=== PATIENT | male | born 1950 | race Caucasian/White ===

== ENCOUNTER 2018-04-30 05:20 | Observation (INO) ==
--- NOTE | 2018-04-30 05:39 | Emergency Department Note ---
Disposition Clinical Impression: Chest pain Disposition: Admitted As Inpatient Condition: Good Time of Disposition: 06:23 Chest Pain HPI - General Stated Complaint: chest pain Time Seen by Provider: 04/30/18 05:26 Source: patient, EMS Mode of arrival: EMS Limitations: no limitations Vital Signs Reviewed: Yes Nursing Notes Reviewed: Yes - History of Present Illness HPI Narrative: 67-year-old male history of hypertension, hyperlipidemia, coronary arterial disease with 6 stents presents emergency department with chest pain. He reports 4 hours prior to arrival experiencing a sharp pain in the midsternum. Denies any diaphoresis, shortness of breath, nausea or vomiting. This occurred while at rest as he was getting ready for bed. Does report a history of insomnia for the past several years. He reports only taken aspirin at home. He took a total of 324 mg aspirin prior to arrival. His pain currently is a 4 out of 10. Last time he had similar symptoms was prior stents. He denies any leg swelling or history of blood clots. Pt complaint: chest pain Severity scale (1-10): 4 - Related Data Home Medications Medication Instructions Recorded Confirmed Cholecalciferol (Vitamin D3) 800 unit PO QAM 03/24/15 03/24/15 [Vitamin D] ClonazePAM [Klonopin] 1 mg PO HS PRN 03/24/15 03/24/15 Divalproex (24 HR) [Depakote ER 500 mg PO HS 03/24/15 03/24/15 (24 HR)] Duloxetine [Cymbalta] 90 mg PO DAILY 03/24/15 03/24/15 Gabapentin [Neurontin] 800 mg PO TID 03/24/15 03/24/15 Ginkgo Biloba [place] Extract [Ginkgo 120 mg PO QAM 03/24/15 03/24/15 Biloba] Isosorbide MONOnitrate (24 HR) 60 mg PO QAM 03/24/15 03/24/15 [Imdur] RX: HydrOXYzine Pamoate 25 mg PO QID PRN 03/24/15 03/24/15 RX: Loperamide [Imodium] 2 mg PO DAILY 03/24/15 03/24/15 RX: Omeprazole [PriLOSEC] 20 mg PO DAILY 03/24/15 03/24/15 Terbinafine HCl [Lamisil] 250 mg PO DAILY 03/24/15 03/24/15 Ubidecarenone [Coenzyme Q10] 200 mg PO QAM 03/24/15 03/24/15 Allergies Allergy/AdvReac Type Severity Reaction Status Date / Time codeine Allergy Swelling Verified 03/24/15 13:21 of Lip/Tongue/Throat acetaminophen [From Tylenol] AdvReac Gastrointestinal Verified 03/24/15 11:22 Upset testosterone AdvReac Fatigued Verified 03/24/15 11:22 All systems ED: reviewed and negative except as stated. Review of Systems: As Per HPI Constitutional: Denies: fever, chills ENT ED: Denies: congestion Cardiovascular: Reports: chest pain Respiratory: Denies: cough, dyspnea Gastrointestinal: Denies: abdominal pain, nausea, vomiting Genitourinary: Denies: dysuria Musculoskeletal: Denies: back pain, neck pain Neurological: Denies: headache Psychiatric: Denies: anxiety, depression Chest Pain PMH - Past Medical History Medical history: Reports: coronary artery disease, diabetes, GERD, hypertension, myocardial infarction, peripheral artery disease, other Surgical history: Reports: angioplasty/stent Psychiatric history: Reports: anxiety, depression, PTSD, other - Social History Smoking Status: Never smoker Alcohol use: Reports: none Drug use: Reports: none, marijuana Physical Exam - General Limitations: no limitations General appearance: alert, in no apparent distress - Head Head exam: atraumatic, normocephalic, normal inspection - Eye Eye exam: Present: normal appearance, PERRL, EOMI - ENT ENT exam: normal exam, normal oropharynx, mucous membranes moist - Neck Neck exam: Present: normal inspection, full ROM, trachea midline - Chest Chest inspection: Present: normal inspection, symmetric chest wall rise. Absent: tenderness - Respiratory Respiratory exam: Present: normal lung sounds bilaterally. Absent: respiratory distress, wheezes - Cardiovascular Cardiovascular exam: Present: regular rate, normal rhythm, normal heart sounds - Expanded Cardiovascular Exam Peripheral pulses: 2+: radial (R), radial (L) - Abdominal Exam Abdominal exam: Present: soft, Non-Tender, scar (old midline, reports prior spleen repair). Absent: tenderness, distention, guarding, rebound, rigidity - Extremities Exam Extremities exam: Present: normal inspection, full ROM, normal capillary refill. Absent: tenderness, pedal edema, calf tenderness - Back Exam Back exam: Present: normal inspection, full ROM. Absent: tenderness - Neurological Exam Neurological exam: Present: alert, oriented X3 - Psychiatric Psychiatric exam: Present: normal affect, normal mood - Skin Skin exam: Present: warm, dry, intact, normal color. Absent: rash, cyanosis, diaphoresis Course Course Narrative: Patient presents with history of CAD status post stents presenting with chest pain. Symptom onset 4 hours prior to arrival. States it feels similar to his prior. No recent illnesses. Denies any other associated symptoms. He took his aspirin earlier today. Chest pain workup initiated. EKG did not reveal any ischemic findings consistent with STEMI - Reevaluation(s) Reevaluation #1: Troponin less than 0.03. His chest pain has improved. Patient HEART score is 4. Recommendation for inpatient hospitalization for further cardiac evaluation and management, patient will be admitted and is in agreement with this plan. Impression is chest pain. Time: 06:22 - Consultations Consultation #1: Spoke with on-call hospitalist shannen Graves to admit for chest pain r/o ACS. No further orders at this time. Repeat BP was 169/96. No antihypertensive administered here at this time. Time: 06:33 Vital Signs Temperature 98.4 F 04/30/18 05:22 Pulse Rate 72 04/30/18 05:22 Respiratory Rate 22 04/30/18 05:22 Blood Pressure 192/108 04/30/18 05:22 O2 Sat by Pulse Oximetry 99 04/30/18 05:22 Temperature 98.4 F 04/30/18 05:22 Pulse Rate 90 04/30/18 06:39 Respiratory Rate 22 04/30/18 05:22 Blood Pressure 163/95 04/30/18 06:39 O2 Sat by Pulse Oximetry 99 04/30/18 05:22 Oxygen Delivery Oxygen Delivery Room Air Chest Pain - MDM Narrative Medical decision making narrative: Patient was discussed with my attending physician who agrees with ED management and final disposition. They independently evaluated the patient. Please refer to their attestation to this encounter for additional information. This note was generated by [employer] voice recognition software and as a result grammatical or spelling errors may occur using this program. - Medical Records Medical records reviewed: Yes I reviewed the patient's medical records. - Lab Data Lab results reviewed: Yes I reviewed the patient's lab results. Result diagrams: 04/30/18 05:39 04/30/18 05:39 Lab Results 04/30/18 04/30/18 Range/Units 05:39 05:39 WBC 7.9 (4.3-11.1) K/mcL RBC 5.89 H (4.19-5.50) M/mcL Hgb 16.1 (12.9-16.9) g/dL Hct 47.4 (37.5-50.1) % MCV 80.5 L (83.0-100.0) fL MCH 27.3 L (28.0-33.3) pg MCHC 34.0 (31.6-35.5) g/dL RDW 13.9 (11.5-14.5) % Plt Count 225 (140-400) K/mcL MPV 9.7 (9.4-12.4) fL Immature Gran % 0.3 (0-4) % Seg Neutrophils % 56.6 % Lymphocytes % 31.6 % Monocytes % 9.4 % Eosinophils % 1.5 % Basophils % 0.6 % Neutrophils # 4.5 (1.6-8.9) K/mcL Lymphocytes # 2.5 (0.6-4.6) K/mcL Monocytes # 0.7 (0.0-1.3) K/mcL Eosinophils # 0.1 (0.0-0.6) K/mcL Basophils # 0.1 (0.0-0.2) K/mcL Sodium 137 (136-145) mEq/L Potassium 3.4 L (3.5-5.1) mEq/L Chloride 103 (98-107) mEq/L Carbon Dioxide 25 (23-29) mEq/L BUN 13 (8-23) mg/dL Creatinine 1.02 (0.70-1.30) mg/dL Est GFR ( Amer) > 60 (> 60) Est GFR (Non-Af Amer) > 60 (> 60) BUN/Creatinine Ratio 13 (6-26) Glucose 131 H (70-105) mg/dL Calculated Osmolality 286 (280-300) Calcium 9.7 (8.6-10.3) mg/dL Troponin I < 0.03 (< 0.04) ng/mL - Radiology Data Radiology results reviewed: Yes I reviewed the patient's radiology results. - EKG Data EKG attestation: Yes I reviewed and interpreted this EKG. EKG results narrative: EKG performed 531 normal sinus rhythm 68 beats per minute, normal axis, good R wave progression, no ST elevation or depression, intervals appear within normal limits. There to prior EKG performed 03/24/2015 shows similar consistent findings. No acute ischemic changes. Heart Score - Score History: Slightly Suspicious EKG: Normal Age: Greater than 65 Risk Factors: Equal/Greater than 3 risk factor or history of atherosclerotic disease Troponin: Less than normal limit HEART Score Total: 4 Attestation Statement - Attestation Attestation: I, Wade Morrow, examined this patient and my medical decision-making was reviewed with the REVIEW SPECIALIST/PA/Advanced Practice Nurse/Resident Physician. I agree with the documented findings, disposition and treatment plan as described except to the extent set forth below. 67-year-old male presents with concerns of chest pain. Patient states pain started 4 hours prior to arrival and have been intermittent throughout the night. Patient reports that this feels similar to his previous MA. Pain is described as a pressure in the center of his chest, he reported associated diaphoresis, nausea, palpitations. Patient has history of coronary artery disea se with 6 stents in his chest. He does not follow supervisor dyer. Initial troponin negative. EKG did not show evidence of STEMI. Chest x-ray did not show evidence of infiltrate or acute surgical pathology. Patient will be admitted to the hospitalist for further care and evaluation.
[2018-04-30 05:52] LABS: Basophils # 0.1 K/mcL (0.0-0.2); Basophils % 0.6 %; Eosinophils # 0.1 K/mcL (0.0-0.6); Eosinophils % 1.5 %; Hematocrit 47.4 % (37.5-50.1); Hemoglobin 16.1 g/dL (12.9-16.9); Immature Granulocytes % 0.3 % (0-4); Lymphocytes # 2.5 K/mcL (0.6-4.6); Lymphocytes % 31.6 %; Mean Corpuscular Hemoglobin 27.3 pg (28.0-33.3); Mean Corpuscular Volume 80.5 fL (83.0-100.0); Mean Platelet Volume 9.7 fL (9.4-12.4); Monocytes # 0.7 K/mcL (0.0-1.3); Monocytes % 9.4 %; Neutrophils # 4.5 K/mcL (1.6-8.9); Platelet Count 225 K/mcL (140-400); Red Blood Count 5.89 M/mcL (4.19-5.50); Red Cell Distribution Width 13.9 % (11.5-14.5); Segmented Neutrophils % 56.6 %
[2018-04-30 06:13] LABS: BUN/Creatinine Ratio 13 (6-26); Blood Urea Nitrogen 13 mg/dL (8-23); Calcium 9.7 mg/dL (8.6-10.3); Carbon Dioxide 25 mEq/L (23-29); Chloride 103 mEq/L (98-107); Glucose 131 mg/dL (70-105); Osmolality,Calculated 286 (280-300); Potassium 3.4 mEq/L (3.5-5.1); Sodium 137 mEq/L (136-145); Troponin I < 0.03 ng/mL (< 0.04); eGFR For Non-African Americans > 60 (> 60)
--- NOTE | 2018-04-30 07:48 | Internal Med History&Physical ---
Date of Encounter: 04/30/18 Time of Encounter: 07:46 Internal Medicine - H&P: HPI Chief complaint: chest pain Admitted From: Emergency Dept Plans for Post Hospital Care: Home History of present illness: Mr. Conti is a 67 year old male Patient with history of CAD said had C stents in the past, diabetes, hypertension, peripheral vascular disease, high cholesterol, GERD, anxiety and depression and PTSD patient presented emergency room with chest pain describes as sharp pain midsternal last about 4 hours present mostly at rest and emergency room EKG is unremarkable troponin is negative patient said his chest pain is now gone. Will be admitted for chest pain rule out protocol to try to get him in for nuclear stress test this morning. Past Med Surg Social Fam HX - Past Medical History Medical history: coronary artery disease, diabetes, GERD, hypertension, myocardial infarction, peripheral artery disease, other Additional medical history: States "no seizure Psychiatric history: anxiety, depression, PTSD, other - Past Surgical History Surgical History: angioplasty/stent - Social History Smoking Status: Never smoker Smokeless Tobacco Status: No Alcohol use: none Drug use: none, marijuana Internal Medicine - H&P: Meds Cholecalciferol (Vitamin D3) [Vitamin D] 800 unit PO QAM 03/24/15 [History] ClonazePAM [Klonopin] 1 mg PO HS PRN 03/24/15 [History] Divalproex (24 HR) [Depakote ER (24 HR)] 500 mg PO HS 03/24/15 [History] Duloxetine [Cymbalta] 90 mg PO DAILY 03/24/15 [History] Gabapentin [Neurontin] 800 mg PO TID 03/24/15 [History] Ginkgo Biloba [place] Extract [Ginkgo Biloba] 120 mg PO QAM 03/24/15 [History] HydrOXYzine Pamoate 25 mg PO QID PRN 03/24/15 [History] Isosorbide MONOnitrate (24 HR) [Imdur] 60 mg PO QAM 03/24/15 [History] Loperamide [Imodium] 2 mg PO DAILY 03/24/15 [History] Omeprazole [PriLOSEC] 20 mg PO DAILY 03/24/15 [History] Terbinafine HCl [Lamisil] 250 mg PO DAILY 03/24/15 [History] Ubidecarenone [Coenzyme Q10] 200 mg PO QAM 03/24/15 [History] Allergy/AdvReac Type Severity Reaction Status Date / Time codeine Allergy Swelling Verified 03/24/15 13:21 of Lip/Tongue/Throat acetaminophen [From Tylenol] AdvReac Gastrointestinal Verified 03/24/15 11:22 Upset testosterone AdvReac Fatigued Verified 03/24/15 11:22 All Systems PM: A 10-system review of systems was performed and is negative for pertinent findings except as documented above in the HPI. - Constitutional Vitals: Temp Pulse Resp BP Pulse Ox 98.4 F 62 14 170/93 96 04/30/18 05:22 04/30/18 07:42 04/30/18 07:42 04/30/18 07:42 04/30/18 07:42 Exam: done - Head Head exam: Present: atraumatic, normocephalic - Eye Eye exam: Present: PERRL, conjuntiva pink, sclera anicteric Pupils: Present: PERRL - Neck Neck exam general surgery: Present: supple, trachea midline. Absent: lymphadeno janell - Respiratory Respiratory exam: Present: CTAB. Absent: accessory muscle use, rales, rhonchi, wheezes - Cardiovascular Cardiovascular exam: Present: RRR, +S1, +S2. Absent: diastolic murmur, gallop, rubs, systolic murmur - GI/Abdominal GI/Abdominal exam: Present: normal bowel sounds, soft, no peritoneal signs. Absent: distended, tenderness - Extremities Exam Extremities exam: Present: warm, radial pulses palpable and symmetrical. Ab sent: calf tenderness, cyanotic, pedal edema - Neurological Exam Neurological exam: Present: CN II-XII intact, oriented X3, no focal deficits. Absent: pronater drift, facial droop, speech deficit - Skin Skin exam: Present: dry, intact Internal Med - H&P Results - Labs CBC & Chem 7: 04/30/18 05:39 04/30/18 05:39 Labs: Short CBC 04/30/18 Range/Units 05:39 WBC 7.9 (4.3-11.1) K/mcL Hgb 16.1 (12.9-16.9) g/dL Hct 47.4 (37.5-50.1) % Plt Count 225 (140-400) K/mcL Neutrophils # 4.5 (1.6-8.9) K/mcL BMP 04/30/18 05:39 Sodium 137 Potassium 3.4 L Chloride 103 Carbon Dioxide 25 BUN 13 Creatinine 1.02 Glucose 131 H Calcium 9.7 Cardiac Enzymes 04/30/18 Range/Units 05:39 Troponin I < 0.03 (< 0.04) ng/mL - Impressions ITS Impressions Chest X-Ray 04/30/18 05:36 IMPRESSION: No acute cardiopulmonary disease. D/ / 04/30/2018 07:35:50 Jones Gordon MD / bcarter Interpreting Provider: Jones Gordon MD - Assessment and plan (1) HTN (hypertension) Current Visit: Yes Status: Chronic Assessment and plan: uncontrol likely contribution to demand ischemia we will adjust home medication Qualifiers: Hypertension type: essential hypertension Qualified Code(s): I10 - Essential (primary) hypertension (2) Hyperlipidemia Current Visit: Yes Status: Chronic Assessment and plan: Resume home medication and check a lipid profile Qualifiers: Hyperlipidemia type: pure hypercholesterolemia Qualified Code(s): E78.00 - Pure hypercholesterolemia, unspecified; E78.0 - Pure hypercholesterolemia (3) Anxiety and depression Current Visit: Yes Status: Chronic Assessment and plan: Resume home medication (4) Post traumatic stress disorder (PTSD) Current Visit: Yes Status: Chronic Assessment and plan: Resume his home medication (5) Chest pain Current Visit: Yes Status: Acute Assessment and plan: Chest pain in a patient with prior sick stents multiple cardiac risk factors of obesity diabetes high cholesterol hypertension need further cardiac evaluation with stress test and 2-D echo Qualifiers: Chest pain type: precordial pain Qualified Code(s): R07.2 - Precordial pain (6) CAD (coronary artery disease), [place] coronary artery Current Visit: No Status: Chronic Assessment and plan: history of 6 stents Qualifiers: [place] vs. transplanted heart: [place] heart Associated angina: without angina Qualified Code(s): I25.10 - Atherosclerotic heart disease of [place] coronary artery without angina pectoris (7) Diabetes mellitus, type 2 Current Visit: No Status: Chronic Assessment and plan: Chronic with resume home medication and place on sliding scale Qualifiers: Diabetes mellitus chcf insulin use: unspecified chcf insulin use status Diabetes mellitus complication status: with circulatory complication Diabetes mellitus complication detail: with peripheral angiopathy without gangrene Qualified Code(s): E11.51 - Type 2 diabetes mellitus with diabetic peripheral angiopathy without gangrene - Time Spent With Patient Total time spent is greater than 50% in coordination of care (as documented) at patient's floor/unit and/or counseling patient:
[2018-04-30] MEDS ORDERED: Naloxone 0.4 MG/ML INJ IVP PRN (07:53)
[2018-04-30] MEDS ORDERED: traMADol 50 MG TABLET PO PRN (07:53)
[2018-04-30] MEDS ORDERED: Acetaminophen 325 MG TABLET PO PRN (07:53)
[2018-04-30] MEDS ORDERED: clonazePAM 1 MG TABLET PO PRN (07:57)
[2018-04-30] MEDS ORDERED: hydrOXYzine pamoate 25 MG CAPSULE PO PRN (07:57)
[2018-04-30] MEDS ORDERED: Regadenoson 0.4 MG/5 ML SYRINGE IVP ONE (08:08)
[2018-04-30 08:27] LABS: Chol/HDL Ratio 4.5 (0-4.9); Cholesterol 287 mg/dL (< 200); HDL Cholesterol 64 mg/dL (40-59); LDL Cholesterol,Calculated 196 mg/dL (0-99); Triglycerides 136 mg/dL (< 150)
[2018-04-30] MEDS: 0.9 % Sodium Chloride 1,000 ML IVC SCH ×2 (09:46→21:45)
[2018-04-30] MEDS: Isosorbide MONOnitrate (24 HR) 60 MG TAB.ER.24H PO SCH (11:59)
[2018-04-30] MEDS: Cholecalciferol (D-3) 1,000 UNIT TABLET PO SCH (11:59)
[2018-04-30] MEDS: amLODIPine 5 MG TABLET PO SCH (11:59)
[2018-04-30] MEDS: Gabapentin 400 MG CAPSULE PO SCH ×3 (11:59→21:45)
[2018-04-30] MEDS: GINKGO BILOBA LEAF EXTRACT 120 MG PO SCH (12:01)
[2018-04-30] MEDS: UBIDECARENONE 200 MG PO SCH (12:01)
--- NOTE | 2018-04-30 14:04 | Electrocardiograph Report ---
[address] [address] Test Date: 2018-04-30 Pat Name: Delfino Conti Department: [id number] Room: 3B41 Gender: M Instrument Assembler: : 1950 Requested By: Keaton Santo Order Number: [id number] Reading MD: Enma Mcgill Measurements Intervals [place] Rate: 68 P: 35 CA: 117 QRS: 1 QRSD: 87 T: 75 QT: 414 QTc: 441 Interpretive Statements Sinus rhythm Borderline short CA interval Electronically Signed On 04-30-2018 14:03:08 EST by Enma Mcgill
[2018-04-30] MEDS ORDERED: Divalproex (24 HR) 500 MG TABLET PO SCH (21:00)
[2018-05-01 05:37] LABS: Basophils % 0.7 %; Eosinophils # 0.2 K/mcL (0.0-0.6); Eosinophils % 2.9 %; Hematocrit 42.4 % (37.5-50.1); Immature Granulocytes % 0.2 % (0-4); Lymphocytes # 1.9 K/mcL (0.6-4.6); Mean Corpuscular HGB Conc 33.5 g/dL (31.6-35.5); Mean Corpuscular Hemoglobin 27.3 pg (28.0-33.3); Mean Corpuscular Volume 81.4 fL (83.0-100.0); Mean Platelet Volume 9.8 fL (9.4-12.4); Monocytes # 0.6 K/mcL (0.0-1.3); Monocytes % 9.7 %; Neutrophils # 3.3 K/mcL (1.6-8.9); Platelet Count 196 K/mcL (140-400); Red Blood Count 5.21 M/mcL (4.19-5.50); Segmented Neutrophils % 54.5 %
[2018-05-01 05:44] LABS: Hemoglobin 14.2 g/dL (12.9-16.9)
[2018-05-01] MEDS ORDERED: Regadenoson 0.4 MG/5 ML SYRINGE IVP ONE (05:44)
[2018-05-01 06:00] LABS: Alanine Aminotransferase 18 Units/L (7-52); Albumin 4.1 g/dL (3.5-5.7); Albumin/Globulin Ratio 2.1 (1.1-2.2); Alkaline Phosphatase 62 Units/L (34-104); Aspartate Amino Transferase 15 Units/L (13-39); BUN/Creatinine Ratio 15 (6-26); Bilirubin,Total 1.1 mg/dL (0.3-1.0); Blood Urea Nitrogen 14 mg/dL (8-23); Carbon Dioxide 25 mEq/L (23-29); Chloride 104 mEq/L (98-107); Glucose 95 mg/dL (70-105); Magnesium 1.7 mg/dL (1.6-2.6); Osmolality,Calculated 284 (280-300); Potassium 3.8 mEq/L (3.5-5.1); Sodium 137 mEq/L (136-145); Total Protein 6.1 g/dL (6.4-8.9); eGFR For Non-African Americans > 60 (> 60)
[2018-05-01] MEDS: UBIDECARENONE 200 MG PO SCH (08:51)
[2018-05-01] MEDS: amLODIPine 5 MG TABLET PO SCH (08:51)
[2018-05-01] MEDS: Cholecalciferol (D-3) 1,000 UNIT TABLET PO SCH (08:51)
[2018-05-01] MEDS: Gabapentin 400 MG CAPSULE PO SCH ×2 (08:51→15:53)
[2018-05-01] MEDS: Isosorbide MONOnitrate (24 HR) 60 MG TAB.ER.24H PO SCH (08:51)
[2018-05-01] MEDS: GINKGO BILOBA LEAF EXTRACT 120 MG PO SCH (08:51)
[2018-05-01 15:07] VITALS: BP 146/88
--- NOTE | 2018-05-01 16:50 | Discharge Summary ---
Orders not resulted at time of discharge: Pending orders 05/02/18 07:00 SP pharm nuclear stress Routine Date of Encounter: 05/01/18 Time of Encounter: 16:43 - Discharge Diagnosis (1) Chest pain Priority: Primary Status: Resolved Qualifiers: Chest pain type: precordial pain Qualified Code(s): R07.2 - Precordial pain (2) HTN (hypertension) Priority: Secondary Status: Chronic Qualifiers: Hypertension type: essential hypertension Qualified Code(s): I10 - Essential (primary) hypertension (3) Hyperlipidemia Priority: Secondary Status: Chronic Qualifiers: Hyperlipidemia type: pure hypercholesterolemia Qualified Code(s): E78.00 - Pure hypercholesterolemia, unspecified; E78.0 - Pure hypercholesterolemia (4) CAD (coronary artery disease), [place] coronary artery Priority: Secondary Status: Chronic Qualifiers: [place] vs. transplanted heart: [place] heart Associated angina: without angina Qualified Code(s): I25.10 - Atherosclerotic heart disease of [place] coronary artery without angina pectoris (5) Diabetes mellitus, type 2 Priority: Secondary Status: Chronic Qualifiers: Diabetes mellitus penitentiary insulin use: unspecified penitentiary insulin use status Diabetes mellitus complication status: with circulatory complication Diabetes mellitus complication detail: with peripheral angiopathy without gangrene Qualified Code(s): E11.51 - Type 2 diabetes mellitus with diabetic peripheral angiopathy without gangrene Hospital course: Mr. Conti is a 67 year old male with a PMH of CAD, with 6 stents in the past, DM, HTN, PVD, HLD, GERD, anxiety depression, PTSD. Presented for ACS rule out. EKG in the ED is without acute changes concerning for ischemia. Serial troponins negative. Chest pain resolved last time of arrival to the ED and has not returned since admission. He was kept overnight with the intention to perform a stress test. However, a stress test was not completed d/t tea ingestion after midnight. The patient was offered to stay overnight to receive a stress test in the morning however, he declined and wishes to discharge. He was instructed that he should have further evaluation of this chest pain due to his history and presentation however again he declined. The patient states that he will have an outpatient evaluation with cardiac stress at the [facility]. He has been Instructed to follow up with his cardiology team at the [facility] and have a stress test as an outpatient evaluation. The patient verbalizes understanding denies any further questions at this time. Furthermore, she will be noted that the patient also was found to have non-controlled hypertension. He is being sent home with a prescription for amlodipine in addition to his current anti-HTN regimen. Again, should be noted that he was strongly encouraged to stay for further monitoring however he wishes to pursue outpatient evaluation. Discharge discussed with: patient, nurse - Time Spent with Patient Total time spent providing and/or coordinating discharge services: Less than 30 minutes - Discharge Medications Prescriptions: amLODIPine [Norvasc] 10 mg PO DAILY 30 Days #60 tablet Atorvastatin [Lipitor] 40 mg PO HS 30 Days #30 tablet Divalproex (24 HR) [Depakote ER (24 HR)] 500 mg PO HS 30 Days #30 tab.er.24h DULoxetine [Cymbalta] 90 mg PO DAILY 30 Days #90 capsule.dr Home Medications: Cholecalciferol (Vitamin D3) [Vitamin D3] 400 unit PO QAM 03/24/15 [History] Gabapentin [Neurontin] 800 mg PO TID 03/24/15 [History] Ubidecarenone [Coenzyme Q10] 200 mg PO QAM 03/24/15 [History] Aspirin 325 mg PO DAILY 04/30/18 [History] Cyclobenzaprine [Flexeril] 10 mg PO BID PRN 04/30/18 [History] Ginkgo Biloba 60 mg PO DAILY 04/30/18 [History] Isosorbide MONOnitrate (24 HR) [Imdur] 60 mg PO DAILY 04/30/18 [History] Lidocaine [Aspercreme] 1 patch TP DAILY 04/30/18 [History] Loperamide [Imodium] 2 mg PO DAILY 04/30/18 [History] Loratadine [Allergy Relief] 10 mg PO DAILY 04/30/18 [History] Losartan Potassium 12.5 mg PO DAILY 04/30/18 [History] Meloxicam 15 mg PO DAILY PRN 04/30/18 [History] Metformin HCl [Glucophage] 500 mg PO BID 04/30/18 [History] Metoprolol Tartrate [Lopressor] 50 mg PO BID 04/30/18 [History] Propylene Glycol/Peg 400 [Lubricant Eye Drops] 1 drop BOTH EYES QID 04/30/18 [History] Vitamin B Complex [B Complex] 1 tab PO DAILY 04/30/18 [History] Atorvastatin [Lipitor] 40 mg PO HS 30 Days #30 tablet 05/01/18 [Rx] DULoxetine [Cymbalta] 90 mg PO DAILY 30 Days #90 capsule. 05/01/18 [Rx] Divalproex (24 HR) [Depakote ER (24 HR)] 500 mg PO HS 30 Days #30 tab.er.24h 05/01/18 [Rx] amLODIPine [Norvasc] 10 mg PO DAILY 30 Days #60 tablet 05/01/18 [Rx] Allergies/Adverse Reactions: Allergy/AdvReac Type Severity Reaction Status Date / Time codeine Allergy Swelling Verified 03/24/15 13:21 of Lip/Tongue/Throat acetaminophen [From Tylenol] AdvReac Gastrointestinal Verified 03/24/15 11:22 Upset testosterone AdvReac Fatigued Verified 03/24/15 11:22 Date of admission: 04/30/18 06:36 [facility] care physician[facility] Discharging clinician: Anastacio Yee Anticipated date of discharge: 05/01/18 - Constitutional Vitals: Temp Pulse Resp BP Pulse Ox 98.8 F 98 19 146/88 91 05/01/18 15:05 05/01/18 15:05 05/01/18 15:05 05/01/18 15:05 05/01/18 15:05 General appearance: Present: A&O X 3 Exam: see exam - Head Head exam: Present: atraumatic, normocephalic - Eye Eye exam: Present: PERRL, conjuntiva pink, sclera anicteric Pupils: Present: PERRL - Neck Neck exam general surgery: Present: supple, trachea midline. Absent: lymphadenopathy - Respiratory Respiratory exam: Present: CTAB. Absent: accessory muscle use, rales, rhonchi, wheezes - Cardiovascular Cardiovascular exam: Present: RRR, +S1, +S2. Absent: diastolic murmur, gallop, rubs, systolic murmur - GI/Abdominal GI/Abdominal exam: Present: normal bowel sounds, soft, no peritoneal signs. Absent: distended, tenderness - Extremities Exam Extremities exam: Present: warm, radial pulses palpable and symmetrical. Absent: calf tenderness, cyanotic, pedal edema - Neurological Exam Neurological exam: Present: CN II-XII intact, oriented X3, no focal deficits. Absent: pronater drift, facial droop, speech deficit - Skin Skin exam: Present: dry, intact - Patient Status Disposition: Home, Self-Care Condition: Good Functional capacity at discharge: independent ambulation Overall status at discharge: patient is back to baseline - Discharge Instructions Instructions: Chronic Hypertension (DC), Chest Pain (DC), Depression (DC), Diabetes Mellitus Type 2 in Adults (DC) Forms: ED Satisfaction Letter - Diet and Activity Activity: increase activity as tolerated, resume usual activities as tolerated Diet: diabetic diet, low fat, low cholesterol, low salt diet
== END 2018-05-01 16:54 | disposition home or self-care (01) ==
LOC: 3BNU 05:20 → EMEROOARM 05:20 → SUATTDRO 06:36 → 3BNU 08:18
PROVIDERS: ADMIT Internal Medicine; ATTEND Nurse Practitioner

== ENCOUNTER 2020-01-11 16:56 | Observation (INO) ==
[2020-01-11] MEDS ORDERED: 0.9 % Sodium Chloride 1,000 ML IVC ONE ×2 (17:02→17:53)
[2020-01-11] MEDS ORDERED: Ondansetron 4 MG/2 ML VIAL IVP ONE (17:02)
[2020-01-11] MEDS ORDERED: Isovue-370 500 ML BOTTLE IVP ONE (17:03)
[2020-01-11 17:39] LABS: Basophils % 0.2 %; Hematocrit 52.2 % (37.5-50.1); Hemoglobin 17.6 g/dL (12.9-16.9); Immature Granulocytes % 0.3 % (0-4); Lymphocytes # 1.3 K/mcL (0.6-4.6); Lymphocytes % 10.6 %; Mean Corpuscular HGB Conc 33.7 g/dL (31.6-35.5); Mean Corpuscular Hemoglobin 28.2 pg (28.0-33.3); Mean Corpuscular Volume 83.5 fL (83.0-100.0); Mean Platelet Volume 9.4 fL (9.4-12.4); Monocytes # 0.8 K/mcL (0.0-1.3); Monocytes % 6.4 %; Neutrophils # 9.8 K/mcL (1.6-8.9); Platelet Count 251 K/mcL (140-400); Red Blood Count 6.25 M/mcL (4.19-5.50); Red Cell Distribution Width 14.5 % (11.5-14.5); Segmented Neutrophils % 82.5 %; White Blood Count 11.8 K/mcL (4.3-11.1)
[2020-01-11 17:42] LABS: Prothrombin Time 10.8 Seconds (9.4-12.1)
[2020-01-11 17:59] LABS: Magnesium 1.6 mg/dL (1.6-2.6)
[2020-01-11 18:02] LABS: Alanine Aminotransferase 32 Units/L (7-52); Albumin 5.3 g/dL (3.5-5.7); Albumin/Globulin Ratio 1.8 (1.1-2.2); Alkaline Phosphatase 72 Units/L (34-104); Aspartate Amino Transferase 42 Units/L (13-39); BUN/Creatinine Ratio 15 (6-26); Bilirubin,Direct 0.2 mg/dL (0.0-0.2); Bilirubin,Indirect 1.1 mg/dL (0.0-1.0); Bilirubin,Total 1.3 mg/dL (0.3-1.0); Blood Urea Nitrogen 18 mg/dL (8-23); Calcium 10.7 mg/dL (8.6-10.3); Carbon Dioxide 22 mEq/L (23-29); Chloride 100 mEq/L (98-107); Globulin 2.9 g/dL (2.4-3.5); Glucose 170 mg/dL (70-105); Lipase 22 Units/L (11-82); Osmolality,Calculated 294 (280-300); Potassium 2.9 mEq/L (3.5-5.1); Sodium 139 mEq/L (136-145); Total Protein 8.2 g/dL (6.4-8.9); eGFR For African Americans > 60 (> 60); eGFR For Non-African Americans > 60 (> 60)
[2020-01-11 18:04] LABS: Troponin I 0.04 ng/mL (< 0.04)
[2020-01-11] MEDS ORDERED: Aspirin 81 MG TAB.CHEW PO ONE (18:05)
[2020-01-11] MEDS ORDERED: Potassium Chloride 40 MEQ, Lidocaine 1% 2 ML in 0.9 % Sodium Chloride 500 ML IVPB ONE ×2 (18:11→22:27)
[2020-01-11 18:26] LABS: Thyroid Stimulating Hormone 1.757 mcIU/mL (0.340-5.600)
[2020-01-11] MEDS ORDERED: Piperacillin/Tazobactam 3.375 GM in 0.9 % Sodium Chloride Mini Bag 100 ML IVPB ONE (19:33)
[2020-01-11] MEDS ORDERED: DilTIAZem 50 MG in 0.9 % Sodium Chloride 40 ML IVC SCH (19:45)
[2020-01-11 19:46] LABS: Bilirubin,Urine Negative (Negative); Blood,Urine Large (Negative); Clarity,Urine Clear (Clear); Color,Urine Yellow (Yellow); Glucose,Urine (UA) Normal (Normal); Hyaline Casts,Urine Few per lpf (None Seen); Ketones,Urine 20 mg/dL (Negative); Leukocyte Esterase,Urine Negative (Negative); Mucus,Urine Few per lpf (None-Few); Nitrite,Urine Negative (Negative); PH,Urine 6.5 pH Units (5.0-8.0); Protein,Urine >=600 mg/dL (Neg-Trace); Specific Gravity,Urine > 1.030 (1.010-1.025); Urobilinogen,Urine Normal (Normal); WBC,Urine 15-30 per hpf (0-3)
[2020-01-11 20:50] LABS: Adenovirus Not Detected (Not Detect); Coronavirus 229E Not Detected (Not Detect); Coronavirus HKU1 Not Detected (Not Detect); Coronavirus NL63 Not Detected (Not Detect); Coronavirus OC43 Not Detected (Not Detect)
[2020-01-11 20:51] LABS: Bordetella Pertussis Not Detected (Not Detect); Chlamydophila pneumoniae Not Detected (Not Detect); Human Metapneumovirus Not Detected (Not Detect); Human Rhinovirus/Enterovirus Not Detected (Not Detect); Influenza A Subtype 2009 H1 Not Detected (Not Detect); Influenza B Not Detected (Not Detect); Mycoplasma pneumoniae Not Detected (Not Detect); Parainfluenza Virus 1 Not Detected (Not Detect); Parainfluenza Virus 2 Not Detected (Not Detect); Parainfluenza Virus 3 Not Detected (Not Detect); Parainfluenza Virus 4 Not Detected (Not Detect); Respiratory Syncytial Virus Not Detected (Not Detect)
[2020-01-11] MEDS ORDERED: Naloxone 0.4 MG/ML INJ IVP PRN (21:19)
[2020-01-11] MEDS ORDERED: Ondansetron 4 MG/2 ML VIAL IVP PRN (21:19)
[2020-01-11] MEDS ORDERED: Acetaminophen 325 MG TABLET PO PRN (21:19)
[2020-01-11] MEDS ORDERED: Dextrose Gel 15 GM/37.5 ML TUBE PO PRN ×2 (21:22)
[2020-01-11] MEDS ORDERED: D5% in Water 1,000 ML IVC PRN (21:22)
[2020-01-11] MEDS ORDERED: *HR* Dextrose 50 % in Water (Vial) 50 ML VIAL IVP PRN (21:22)
[2020-01-11] MEDS ORDERED: traZODone 50 MG TABLET PO PRN (22:28)
[2020-01-11] MEDS ORDERED: IPRATROPIUM BROMIDE NS PRN (22:28)
[2020-01-11] MEDS ORDERED: clonazePAM 0.5 MG TABLET PO PRN (22:28)
[2020-01-11] MEDS ORDERED: Perflutren Lipid Microsphere 1.3 ML in 0.9 % Sodium Chloride 8.7 ML IVP PRN (22:30)
[2020-01-11 22:42] LABS: Estimated Average Glucose 126 mg/dl
[2020-01-11] MEDS: DilTIAZem 50 MG/50 ML IV.SOLN IVC SCH (23:19)
[2020-01-11] MEDS: 0.9 % Sodium Chloride 1,000 ML IVC SCH (23:23)
[2020-01-11] MEDS: Insulin LISPRO 300 UNITS/3 ML VIAL SQ SCH (23:59)
[2020-01-12] MEDS ORDERED: Piperacillin/Tazobactam 3.375 GM in 0.9 % Sodium Chloride Mini Bag 100 ML IVPB SCH
[2020-01-12] MEDS ORDERED: *HR* Promethazine 25 MG/ML VIAL IVP PRN (03:09)
[2020-01-12 05:51] LABS: Basophils % 0.2 %; Eosinophils % 0.3 %; Hematocrit 45.3 % (37.5-50.1); Immature Granulocytes % 0.3 % (0-4); Lymphocytes # 1.2 K/mcL (0.6-4.6); Lymphocytes % 13.6 %; Mean Corpuscular HGB Conc 32.9 g/dL (31.6-35.5); Mean Corpuscular Hemoglobin 28.1 pg (28.0-33.3); Mean Corpuscular Volume 85.5 fL (83.0-100.0); Mean Platelet Volume 9.6 fL (9.4-12.4); Monocytes # 0.9 K/mcL (0.0-1.3); Monocytes % 9.5 %; Neutrophils # 6.9 K/mcL (1.6-8.9); Platelet Count 192 K/mcL (140-400); Red Cell Distribution Width 14.5 % (11.5-14.5); Segmented Neutrophils % 76.1 %; White Blood Count 9.1 K/mcL (4.3-11.1)
[2020-01-12 05:53] LABS: Hemoglobin 14.9 g/dL (12.9-16.9)
[2020-01-12 05:56] LABS: Prothrombin Time 11.3 Seconds (9.4-12.1)
[2020-01-12 06:11] LABS: Alanine Aminotransferase 28 Units/L (7-52); Albumin 4.3 g/dL (3.5-5.7); Alkaline Phosphatase 64 Units/L (34-104); Aspartate Amino Transferase 38 Units/L (13-39); BUN/Creatinine Ratio 16 (6-26); Bilirubin,Total 1.4 mg/dL (0.3-1.0); Blood Urea Nitrogen 16 mg/dL (8-23); Calcium 9.2 mg/dL (8.6-10.3); Carbon Dioxide 24 mEq/L (23-29); Chloride 106 mEq/L (98-107); Cholesterol 297 mg/dL (< 200); Globulin 2.2 g/dL (2.4-3.5); Glucose 107 mg/dL (70-105); HDL Cholesterol 60 mg/dL (40-59); LDL Cholesterol,Calculated 216 mg/dL (< 100); Magnesium 1.8 mg/dL (1.6-2.6); Osmolality,Calculated 292 (280-300); Phosphorous 2.6 mg/dL (2.7-4.5); Potassium 3.6 mEq/L (3.5-5.1); Sodium 140 mEq/L (136-145); Total Protein 6.5 g/dL (6.4-8.9); Triglycerides 105 mg/dL (< 150); eGFR For African Americans > 60 (> 60); eGFR For Non-African Americans > 60 (> 60)
[2020-01-12] MEDS: Insulin LISPRO 300 UNITS/3 ML VIAL SQ SCH ×3 (10:13→16:46)
[2020-01-12] MEDS: Isosorbide MONOnitrate (24 HR) 60 MG TAB.ER.24H PO SCH (10:14)
[2020-01-12] MEDS: hydrOXYzine pamoate 25 MG CAPSULE PO SCH ×4 (10:14→21:20)
[2020-01-12] MEDS: Aspirin 325 MG TABLET PO SCH ×2 (10:14→21:20)
[2020-01-12] MEDS: Venlafaxine XR (24 HR) 150 MG CAP.ER.24H PO SCH (10:14)
[2020-01-12] MEDS: Gabapentin 400 MG CAPSULE PO SCH ×3 (10:14→21:20)
[2020-01-12] MEDS: cefTRIAXone 1,000 MG in Water for inj. (sterile) 10 ML IVP SCH (10:15)
[2020-01-12] MEDS: 0.9 % Sodium Chloride 1,000 ML IVC SCH (11:26)
[2020-01-12] MEDS: DilTIAZem 50 MG/50 ML IV.SOLN IVC SCH (13:10)
[2020-01-12] MEDS: *HR* Heparin 5,000 UNIT/ML VIAL SQ SCH ×2 (18:23→18:25)
[2020-01-13] MEDS: *HR* Heparin 5,000 UNIT/ML VIAL SQ SCH (04:55)
[2020-01-13] MEDS: 0.9 % Sodium Chloride 1,000 ML IVC SCH (05:16)
[2020-01-13 08:29] LABS: Hematocrit 43.9 % (37.5-50.1); Hemoglobin 14.6 g/dL (12.9-16.9); Mean Corpuscular HGB Conc 33.3 g/dL (31.6-35.5); Mean Corpuscular Hemoglobin 28.5 pg (28.0-33.3); Mean Corpuscular Volume 85.7 fL (83.0-100.0); Mean Platelet Volume 9.6 fL (9.4-12.4); Platelet Count 163 K/mcL (140-400); Red Blood Count 5.12 M/mcL (4.19-5.50); Red Cell Distribution Width 14.8 % (11.5-14.5)
[2020-01-13 08:50] LABS: Alanine Aminotransferase 27 Units/L (7-52); Albumin/Globulin Ratio 1.8 (1.1-2.2); Alkaline Phosphatase 58 Units/L (34-104); Aspartate Amino Transferase 31 Units/L (13-39); BUN/Creatinine Ratio 19 (6-26); Bilirubin,Total 1.1 mg/dL (0.3-1.0); Blood Urea Nitrogen 18 mg/dL (8-23); Calcium 9.1 mg/dL (8.6-10.3); Carbon Dioxide 22 mEq/L (23-29); Chloride 109 mEq/L (98-107); Globulin 2.2 g/dL (2.4-3.5); Glucose 95 mg/dL (70-105); Osmolality,Calculated 288 (280-300); Sodium 138 mEq/L (136-145); Total Protein 6.2 g/dL (6.4-8.9); eGFR For African Americans > 60 (> 60); eGFR For Non-African Americans > 60 (> 60)
[2020-01-13] MEDS ORDERED: Lidocaine 4% CREAM (LMX) 5 GM TP SCH (09:00)
[2020-01-13] MEDS: Venlafaxine XR (24 HR) 150 MG CAP.ER.24H PO SCH (09:05)
[2020-01-13] MEDS: Gabapentin 400 MG CAPSULE PO SCH (09:06)
[2020-01-13] MEDS: Isosorbide MONOnitrate (24 HR) 60 MG TAB.ER.24H PO SCH (09:06)
[2020-01-13] MEDS: Aspirin 325 MG TABLET PO SCH (09:06)
[2020-01-13] MEDS: hydrOXYzine pamoate 25 MG CAPSULE PO SCH ×2 (09:06→12:52)
[2020-01-13] MEDS: Insulin LISPRO 300 UNITS/3 ML VIAL SQ SCH ×2 (09:07→12:29)
[2020-01-13] MEDS: cefTRIAXone 1,000 MG in Water for inj. (sterile) 10 ML IVP SCH (09:09)
[2020-01-13] MEDS ORDERED: NIFEdipine 10 MG CAPSULE PO SCH (09:30)
[2020-01-13 11:09] VITALS: BP 122/64
== END 2020-01-13 16:20 | disposition home health service (06) ==
LOC: 2ANU 16:56 → EMEROOARM 16:56 → SUATTDRO 19:38 → 2ANU 21:40
PROVIDERS: ADMIT Student in an Organized Health Care Education/Training Program; ATTEND Family Medicine